=== PATIENT | male | born 1960 | race Caucasian/White ===

== ENCOUNTER 2021-03-29 20:50 | Emergency (ER) | payer MEDICARE ==
[2021-03-29 21:34] LABS: Band 1 % (5-11); Eosinophils 2 % (0-10); Hemoglobin 17.3 g/dL (14.0-18.0); Lymphocytes 33 % (21-51); MDiff Complete? YES; Mean Corpuscular HGB CONC 32.1 g/dL (32.0-36.0); Mean Corpuscular Hemoglobin 30.8 pg (27.0-31.0); Mean Platelet Volume 8.2 fL (7.4-10.4); Monocytes 6 % (0-10); Neutrophil 58 % (42-75); Platelet Count 212 thou/uL (130-400); Platelet Morphology Comment Appears Adequate; RBC Distribution Width 12.9 % (11.5-14.5); RBC Morphology Normal; White Blood Cell (WBC) Count 9.1 thou/uL (4.8-10.8)
[2021-03-29 21:41] LABS: ALT (SGPT) 26 U/L (8-55); AST (SGOT) 27 U/L (5-34); Albumin 4.2 g/dL (3.4-4.8); Alkaline Phosphatase 72 U/L (40-110); Anion Gap 23 mmol/L (10-20); BUN (Urea Nitrogen) 14 mg/dL (8.4-25.7); Bilirubin, Total 0.8 mg/dL (0.2-1.2); Calc. Creatinine Clearance 0 mL/min (70-130); Calcium 9.4 mg/dL (7.8-10.44); Carbon Dioxide 21 mmol/L (23-31); Chloride 104 mmol/L (98-107); Globulin 3.1 g/dL (2.4-3.5); Glucose 178 mg/dL (80-115); Potassium 3.7 mmol/L (3.5-5.1); Protein, Total 7.3 g/dL (5.8-8.1); Sodium 144 mmol/L (136-145)
[2021-03-29] MEDS ORDERED: Sodium Chloride 0.9% 1,000 ML ONE (21:50)
[2021-03-30] MEDS ORDERED: Doxycycline 100 MG CAP ONE (00:11)
== END 2021-03-30 00:16 | disposition home or self-care (01) ==
LOC: MADERS 20:50
DX: J44.1 Chronic obstructive pulmonary disease with (acute) exacerbation (principal); E11.9 Type 2 diabetes mellitus without complications
CPT/HCPCS: 36415; 71046; 80053; 83605; 83880; 84484; 85025; 87040; 93005; 94760; J7050; J7620

== ENCOUNTER 2022-02-21 13:20 | Emergency (ER) | payer MEDICARE ==
[~2022-02-21 13:20] MED LIST: Iopamidol 370 76% 100 ML VIAL ONE; Sodium Chloride 0.9% 100 ML BAG ONE
[2022-02-21 14:32] LABS: #Basophils 0.1 thou/uL (0.0-0.2); #Eosinphils 0.1 thou/uL (0.0-0.7); #Lymphocytes 2.3 thou/uL (1.20-3.40); #Monocytes 0.9 thou/uL (0.11-0.59); #Neutrophils 6.1 thou/uL (1.40-6.50); %Basophils 1.2 % (0.0-1.0); %Eosinophils 1.3 % (0.0-10.0); %Lymphocytes 23.8 % (21.0-51.0); %Monocytes 9.3 % (0.0-10.0); %Neutrophils 64.4 % (42.0-75.0); Hemoglobin 17.3 g/dL (14.0-18.0); Mean Corpuscular HGB CONC 32.1 g/dL (32.0-36.0); Mean Corpuscular Hemoglobin 30.4 pg (27.0-31.0); Mean Corpuscular Volume 94.6 fL (78.0-98.0); Mean Platelet Volume 9.6 fL (7.4-10.4); Platelet Count 207 thou/uL (130-400); RBC Distribution Width 12.4 % (11.5-14.5); Red Blood Cell (RBC) Count 5.68 mill/uL (4.70-6.10); White Blood Cell (WBC) Count 9.5 thou/uL (4.8-10.8)
[2022-02-21 14:39] LABS: INR-International Normal Ratio 1.7; Prothrombin Time 20.5 sec (12.0-14.7)
[2022-02-21 14:40] LABS: PTT 43.9 sec (22.9-36.1)
[2022-02-21 14:44] LABS: Acetaminophen Less than 10.0 mcg/mL (10.0-30.0); Alcohol Less than 10 mg/dL (Less than 10); Salicylate Less than 8.0 mg/dL (15.0-30.0)
[2022-02-21 14:46] LABS: ALT (SGPT) 45 U/L (8-55); AST (SGOT) 52 U/L (5-34); Albumin 4.1 g/dL (3.4-4.8); Alkaline Phosphatase 79 U/L (40-110); Anion Gap 20 mmol/L (10-20); BUN (Urea Nitrogen) 25 mg/dL (8.4-25.7); Bilirubin, Total 0.6 mg/dL (0.2-1.2); CK (CPK) 64 U/L (30-200); Calc. Creatinine Clearance 0 mL/min (70-130); Calcium 9.4 mg/dL (7.8-10.44); Carbon Dioxide 19 mmol/L (23-31); Chloride 99 mmol/L (98-107); Globulin 3.8 g/dL (2.4-3.5); Glucose 215 mg/dL (80-115); Potassium 5.1 mmol/L (3.5-5.1); Protein, Total 7.9 g/dL (5.8-8.1); Sodium 133 mmol/L (136-145)
[2022-02-21] MEDS ORDERED: Sodium Chloride 0.9% 500 ML ONE (15:47)
[2022-02-21] MEDS ORDERED: Aspirin Chewable 81 MG TAB ONE (15:47)
[2022-02-21 15:51] LABS: Amphetamine Not Detected (NotDetected); Barbiturates Screen Not Detected (NotDetected); Benzodiazepine Screen Not Detected (NotDetected); Cocaine Metabolite Screen Not Detected (NotDetected); Medtox Control Line Valid? VALID (VALID); Methadone Not Detected (NotDetected); Methamphetamine Not Detected (NotDetected); Opiate Screen Not Detected (NotDetected); Oxycodone Screen Not Detected (NotDetected); Phencyclidine (PCP) Not Detected (NotDetected); THC/Cannabinoid Screen Detected (NotDetected); Tricyclic Screen Not Detected (NotDetected)
[2022-02-21] MEDS ORDERED: Dextrose 5 %-0.45 % NaCl 1,000 ML ONE (18:41)
[2022-02-21] MEDS ORDERED: Multivit, Adult Inj 10 ML VIAL ONE (18:42)
[2022-02-21] MEDS ORDERED: Thiamine HCl 200 MG/2 ML VIAL ONE (18:42)
== END 2022-02-21 20:01 | disposition short-term general hospital (02) ==
LOC: MADERS 13:20
DX: I63.9 Cerebral infarction, unspecified (principal); G93.40 Encephalopathy, unspecified; R27.0 Ataxia, unspecified; G93.0 Cerebral cysts; E87.2 Acidosis; E11.65 Type 2 diabetes mellitus with hyperglycemia; R29.703 NIHSS score 3; I49.9 Cardiac arrhythmia, unspecified; I10 Essential (primary) hypertension; I48.91 Unspecified atrial fibrillation; J44.9 Chronic obstructive pulmonary disease, unspecified; E11.40 Type 2 diabetes mellitus with diabetic neuropathy, unspecified; Z95.0 Presence of cardiac pacemaker; Z79.4 Long term (current) use of insulin; Z79.899 Other long term (current) drug therapy
CPT/HCPCS: 36416; 70450; 70496; 70498; 71045; 80053; 80306; 80307; 82550; 84443; 84484; 85025; 85610; 85730; 93005; 96365; 96366; J3411; J7030; J7042; Q9967

== ENCOUNTER 2023-06-17 20:35 | Emergency (ER) | payer OTHER | END 2023-06-17 21:20 | disposition left against medical advice (07) | LOC: MADERS 20:35 | DX: Z95.0 Presence of cardiac pacemaker (principal) | CPT/HCPCS: 99283 ==